=== PATIENT | male | born 1990 | race Caucasian/White ===

== ENCOUNTER → 2023-03-10 | Day surgery (SDC) | payer OTHER ==
[~2023-03-10] MED LIST: ACETAMINOPHEN/CODEINE 300MG - 30MG TAB ONE; ACETAMINOPHEN/CODEINE 300MG - 30MG TAB PO ONE; AZSTARYS 39.21 EACH PO; BUPROPION HCL100 MG PO; DEXAMETHASONE SOD PHOS INJ 4 MG/ML SDV ONE; EPINEPHRINE HCL 1:1000 1ML 1 MG/ML AMP ONE; FENTANYL CITRATE/PF 100MCG/2 ML INJ ONE; GLYCOPYRROLATE INJ 0.2 MG/ML VIAL ONE; LACTATED RINGER'S 1,000 ML ONE; LIDOCAINE 1% W/EPINEPHRINE 20 ML VIAL ONE; LIDOCAINE HCL 2% LOCAL INJ 5 ML SDV VIAL INJ ONE; MIDAZOLAM HCL 2 MG/2 ML VIAL ONE; NEOSTIGMINE 1 MG/ML 10ML VIAL ONE; OMEPRAZOLE40 MG PO; ONDANSETRON HCL INJ 2MG/ML 2ML 2 MG/ML VIAL ONE; POVIDONE IODINE 0.05% 0.05 % ML PO ONE; PROPOFOL IV EMULSION 10 MG/ML 20 ML VIAL ONE; ROCURONIUM BROMIDE 10 MG/ML 5ML VIAL IV ONE; SEVOFLURANE INHAL SOLN 250 ML PEN BTL ONE; SUCCINYLCHOLINE CHLORIDE 20 MG/ML 10ML VIAL ONE
[2023-03-10 12:50] VITALS: BP 139/86
== END | disposition home or self-care (01) ==
LOC: OR 08:43 → EDSEX 12:00
PROVIDERS: ATTEND Otolaryngology Otolaryngology/Facial Plastic Surgery
DX: J34.2 Deviated nasal septum (principal); J34.89 Other specified disorders of nose and nasal sinuses; F90.9 Attention-deficit hyperactivity disorder, unspecified type; Z79.899 Other long term (current) drug therapy
CPT/HCPCS: 30520; 88304; 88311; J0171; J2250; J3010; J7121; 88300; J0330; J1100; J2001; J2405; J2710